=== PATIENT | female | born 1970 | race Caucasian/White ===

== ENCOUNTER 2022-03-14 07:35 | Day surgery (SDC) | payer OTHER ==
[2022-03-13 13:15] LABS: Absolute Lymphocytes (CBC) 0.9 K/uL (0.7-4.9); Hematocrit 33.8 % (36.0-45.0); Lymphocytes % 19.9 % (15.3-44.8); MCV 87.3 fL (80-100); MPV 6.3 fL (7.6-11.3); RBC Red Blood Cell Count 3.87 M/uL (3.86-4.86)
[2022-03-13 13:24] LABS: Potassium 3.4 mmol/L (3.5-5.1)
[2022-03-13 13:25] LABS: SARS-CoV-2 Antigen Rapid Res Positive (Negative)
[2022-03-14] MEDS ORDERED: Ringers Lactate 1,000 ML IV ONE (08:09)
--- NOTE | 2022-03-14 08:17 | EKG ---
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
[2022-03-14] MEDS ORDERED: SCOPOLAMINE HYDROBROMIDE PATCH TD ONE (09:57)
[2022-03-14] MEDS ORDERED: ACETAMINOPHEN 500 MG TAB ONE (09:57)
[2022-03-14] MEDS ORDERED: FENTANYL CITR 100 MCG/2 ML ONE (10:09)
[2022-03-14] MEDS ORDERED: LIDOCAINE 2% MPF 5 ML VIAL ONE (10:10)
[2022-03-14] MEDS ORDERED: propofoL 200 MG/20 ML VIAL IV ONE (10:10)
[2022-03-14] MEDS ORDERED: MIDAZOLAM HCL 2 MG/2 ML INJ ONE (10:10)
[2022-03-14] MEDS ORDERED: dexAMETHasone 10 MG/ML VIAL ONE (10:29)
[2022-03-14] MEDS ORDERED: ONDANSETRON 4 MG/2 ML VIAL ONE ×2 (10:30→11:38)
[2022-03-14] MEDS ORDERED: KETOROLAC 30 MG/ML INJ ONE (10:30)
[2022-03-14] MEDS ORDERED: NS 0.9% VIAL 10 ML ONE ×2 (10:38→11:03)
[2022-03-14] MEDS ORDERED: CEFAZOLIN SODIUM 1 GM/VIAL ONE (10:38)
[2022-03-14] MEDS ORDERED: BUPIVACAINE 0.25% PF 10 ML VIAL ONE (11:04)
[2022-03-14] MEDS ORDERED: HYDROMORPHONE HCL 1 MG/ML INJ ONE (11:38)
[2022-03-14 13:52] VITALS: BP 133/86; TEMP 96.7; O2SAT 98
--- NOTE | 2022-03-14 20:48 | RAD REPORT ---
EXAM DESCRIPTION: RAD - Fluoroscopy <1 Hour - 03/14/2022 2:03 pm CLINICAL HISTORY: RT ANKLE ORIF COMPARISON: No comparisons FINDINGS/IMPRESSION: Four intraoperative fluoroscopic images were submitted showing ORIF of a distal fibular fracture. Cumulative dose: 0.548 mGy Fluoro time: 0.3 minutes
--- NOTE | 2022-03-14 21:27 | OP ---
Date of Procedure: 03/14/2022 Surgeon: Josiah Park MD Preoperative Diagnosis: Right ankle lateral malleolus fracture, which was displaced. Postoperative Diagnosis: Right ankle lateral malleolus fracture, which was displaced. Procedure: Right open reduction and internal fixation of lateral malleolus fracture. Estimated Blood Loss: Less than 10 cc. Complications: There were no complications. Specimen: No pathology specimen sent. Indications: Ms. Woodall is a 51-year-old female who unfortunately fell injuring her right lower ext remity. She was seen and examined in my office where she had skin, which did not wrinkle as well as an x-ray, which demonstrated a displaced lateral malleolus fracture. There was a thought that we cou ld treat this nonoperatively in a cast or walking boot; however, the degree of displacement of the la teral malleolus was significant. There was very significant widening of medial clear space, which wa s felt most likely to reflect instability and the patient weighed her options and elects operative op en reduction and internal fixation and agrees to proceed. Description Of Procedure: The patient was taken to the operating room and placed in supine position. General anesthesia was obtained by staff. Following this, well-padded tourniquet was placed on sup erior right thigh. Right lower extremity was then prepped and draped in usual sterile fashion for pr ocedure with the exception of not using iodine as she does have an allergy. After this, the leg was then elevated, but not exsanguinated. Tourniquet was raised. The C-arm was brought in to dionicio out t he tip of the lateral malleolus as well as the fracture site. It should be noted that the skin now, after elevation after seeing her in the clinic, does easily wrinkle and is without tension. A standa rd lateral incision was then taken down carefully through skin and soft tissues with meticulous hemos tasis being maintained using Bovie electrocautery. This leads down to the fibula as well as the frac ture site. The fracture site is meticulously cleaned and the fibula was exposed. After this, a barrys ter claw reduction clamp was then used to bring the fibula out to length and anatomic position. Afte r this, a 6 hole 1/3 tubular plate was selected and applied using standard fashion. Decision was mad e not to use a lag screw. Although it may have been appropriate, it was felt that the reduction was anatomic and the plate appeared to hold this as well. The wound was then irrigated and the skin was closed using interrupted Vicryl sutures, followed by cristhian. The patient was then placed in extreme ly well-padded sterile dressing as well as a posterior splint with a U stirrup. Anesthesia is planni ng on placing a block. /RUPESH Voice ID: [id number] Report ID: [id number]
== END 2022-03-14 12:54 | disposition home or self-care (01) ==
LOC: OR 07:35
PROVIDERS: ATTEND Orthopaedic Surgery
PROC: 0QSJ04Z Reposition Right Fibula with Internal Fixation Device, Open Approach (ICD-10-PCS; principal; 2022-03-14 10:00)
DX: S82.61XA Displaced fracture of lateral malleolus of right fibula, initial encounter for closed fracture (principal); U07.1 COVID-19; Z91.09 Other allergy status, other than to drugs and biological substances; Z88.8 Allergy status to other drugs, medicaments and biological substances
CPT/HCPCS: 93005; 85025; 80048; 36415; 87811; 27792; J2704; J2250; J3010; J1100; J7120; J2405; J0690; 76000; J1170